=== PATIENT | female | born 1965 | race African-American/Black ===

== ENCOUNTER → 2017-09-07 | Outpatient (CLI) | payer BC | LOC: MC.RAD 09:31 | DX: Z12.31 Encounter for screening mammogram for malignant neoplasm of breast (principal) ==

== ENCOUNTER → 2017-09-19 | Outpatient (CLI) | payer BC | LOC: MC.RAD 13:57 | DX: D24.1 Benign neoplasm of right breast (principal) ==

== ENCOUNTER 2017-10-30 08:33 | Day surgery (SDC) | payer BC ==
[~2017-10-30] VITALS: Ht 165.1 cm; Wt 125.5 kg
[2017-10-30] VITALS (11 sets, daily range): BP systolic 110–145; BP diastolic 76–785; PULSE 60–77; TEMP 97.5–98.1
[2017-10-30 09:37] LABS: HEMATOCRIT 42.5 % (37.0-47.0); HEMOGLOBIN 13.9 g/dl (12.5-16.0); MEAN CELL VOLUME 89 fl (80.0-100.0); MEAN CORPUSCULAR HEMOGLOBIN 29 pg (27.0-31.0); MEAN CORPUSCULAR HGB CONC 33 g/dl (33.0-37.0); MEAN PLATELET VOLUME 10.2 fl (7.4-10.4); PLATELET COUNT 311 K/mm3 (130-400); RED BLOOD COUNT 4.79 M/mm3 (4.10-5.30); REDCELL DISTRIBUTION WIDTH-CV 12.9 % (11.5-14.5)
[2017-10-30 09:46] LABS: CALCIUM 9.8 mg/dL (8.4-10.2); CREATININE, serum 0.82 mg/dL (0.52-1.25); POTASSIUM 4.1 mmol/L (3.4-5.0)
[2017-10-30 10:04] LABS: INR 1.1 (0.8-3.0); PROTHROMBIN TIME 12.3 SECONDS (9.7-12.8)
[2017-10-30] MEDS ORDERED: LIPITOR20 MG PO (10:41)
[2017-10-30] MEDS ORDERED: ABILIFY5 MG PO (10:41)
[2017-10-30] MEDS ORDERED: LEXAPRO20 MG PO (10:42)
[2017-10-30] MEDS ORDERED: XANAX 0.5MG0.5 MG PO (10:42)
[2017-10-30] MEDS ORDERED: VITAMIN B COMPL1 SGL PO (10:43)
[2017-10-30] MEDS ORDERED: FISH OIL 1000MG1 CAP PO (10:43)
[2017-10-30] MEDS ORDERED: TOPAMAX50 MG PO (10:44)
[2017-10-30] MEDS ORDERED: MULTI VITAMINS1 TAB PO (10:44)
[2017-10-30] MEDS ORDERED: GLUCOSAMINE MSM1 TAB PO (10:45)
[2017-10-30] MEDS ORDERED: ASPIRIN E.C. 8181 MG PO (10:45)
[2017-10-30] MEDS ORDERED: BENTYL 20MG20 MG/TAB PO (10:46)
[2017-10-30] MEDS ORDERED: PROBIOTIC FORMU1 CAP PO (10:46)
[2017-10-30] MEDS ORDERED: LEVBID0.375 MG PO (10:47)
[2017-10-30] MEDS ORDERED: TOPROL XL 25MG25 MG PO (10:48)
[2017-10-30] MEDS ORDERED: DESYREL 50MG50 MG PO (10:48)
[2017-10-30] MEDS ORDERED: FLONASE NASAL S16 GM NS (10:53)
== END 2017-10-30 16:26 | disposition home or self-care (01) ==
LOC: COL.CAR 08:33
PROVIDERS: Internal Medicine Cardiovascular Disease
DX: R06.02 Shortness of breath (principal); R94.39 Abnormal result of other cardiovascular function study; E78.5 Hyperlipidemia, unspecified; G47.33 Obstructive sleep apnea (adult) (pediatric); Z86.79 Personal history of other diseases of the circulatory system
CPT/HCPCS: C1760; C1769; C1894; J2250; J3010; Q9967

== ENCOUNTER → 2019-04-04 | Outpatient (CLI) | payer OTHER ==
[~2019-04-04] MED LIST: ABILIFY5 MG PO; ASPIRIN E.C. 8181 MG PO; BENTYL 20MG20 MG/TAB PO; DESYREL 50MG50 MG PO; FISH OIL 1000MG1 CAP PO; FLONASE NASAL S16 GM NS; GLUCOSAMINE MSM1 TAB PO; LEVBID0.375 MG PO; LEXAPRO20 MG PO; LIPITOR20 MG PO; MULTI VITAMINS1 TAB PO; PROBIOTIC FORMU1 CAP PO; TOPAMAX50 MG PO; TOPROL XL 25MG25 MG PO; VITAMIN B COMPL1 SGL PO; XANAX 0.5MG0.5 MG PO
== END ==
LOC: MC.RAD 02-28 14:45
DX: Z12.31 Encounter for screening mammogram for malignant neoplasm of breast (principal); N63.10 Unspecified lump in the right breast, unspecified quadrant

== ENCOUNTER → 2019-04-11 | Outpatient (CLI) | payer OTHER | LOC: MC.RAD 14:00 | DX: N60.01 Solitary cyst of right breast (principal); N63.12 Unspecified lump in the right breast, upper inner quadrant | CPT/HCPCS: G0279 ==